=== PATIENT | female | born 1995 | race Caucasian/White ===

== ENCOUNTER → 2019-12-17 16:22 | Emergency (ER) | payer BC ==
[~2019-12-17 16:22] MED LIST: Sulfamethox/Trimethoprim DS 800/160* TAB PO ONE
[2019-12-17 16:31] VITALS: BP 139/92
--- NOTE | 2019-12-17 16:50 | ED ---
Lower Extremity - HPI Summary HPI Summary: Patient complains of purulent discharge from fourth and fifth digits of right foot. Patient states she stubbed his toe toes 1-1/2 weeks ago, has been willard taping them. Noticed erythema and purulence this morning. Denies new trauma. Denies fever, cough, sore throat, CP, SOB, N/3/D, abdominal pain, change in urine, change in BM. Medical history is none. - History of Current Complaint Chief Complaint: EDExtremityLower Stated Complaint: R FOOT PAIN PER PT Time Seen by Provider: 12/17/19 16:36 Hx Obtained From: Patient Mechanism Of Injury: Blunt Trauma Onset/Duration: Weeks Severity Initially: Moderate Severity Currently: Moderate Pain Intensity: 8 Pain Scale Used: 0-10 Numeric Timing: Constant Location: Is Discrete @ Character Of Pain: Aching, Throbbing Associated Signs And Symptoms: Positive: Swelling, Redness Aggravating Factor(s): Standing, Ambulation, Weight Bearing Alleviating Factor(s): Rest, Elevation Able to Bear Weight: Yes - Allergies/Home Medications Allergies/Adverse Reactions: Allergies Allergy/AdvReac Type Severity Reaction Status Date / Time Penicillins Allergy Rash Verified 12/17/19 16:31 PMH/Surg Hx/FS Hx/Imm Hx Endocrine/Hematology History: Denies: Hx Anticoagulant Therapy Cardiovascular History: Denies: Hx Pacemaker/ICD History: Denies: Hx Dialysis Sensory History: Denies: Hx Eye Prosthesis, Hx Deafness Opthamlomology History: Denies: Hx Eye Prosthesis EENT History: Denies: Hx Deafness Neurological History: Reports: Other Neuro Impairments/Disorders - MID BACK PAIN , Denies: Hx Dementia Psychiatric History: Denies: Hx Autism Infectious Disease History: No Infectious Disease History: Denies: Traveled Outside the [place] in Last 30 Days - Family History Known Family History: Positive: Non-Contributory - Social History Alcohol Use: None Substance Use Type: Reports: None Smoking Status (MU): Never Smoked Tobacco Review of Systems Constitutional: Negative Eyes: Negative ENT: Negative Cardiovascular: Negative Respiratory: Negative Gastrointestinal: Negative Genitourinary: Negative Musculoskeletal: Other Skin: Other Neurological/Mental Status: Negative Psychological: Normal All Other Systems Reviewed And Are Negative: Yes Physical Exam - Summary Physical Exam Summary: Erythema to the proximal to fourth and fifth digits of right foot. Open wound at base of webbing between the fourth and fifth digits of right foot. Positive purulent drainage. No evidence of abscess. PMS intact distally. Triage Information Reviewed: Yes Vital Signs On Initial Exam: Initial Vitals Temp Pulse Resp BP Pulse Ox 98.3 F 83 16 139/92 99 12/17/19 16:26 12/17/19 16:26 12/17/19 16:26 12/17/19 16:26 12/17/19 16:26 Vital Signs Reviewed: Yes Appearance: Positive: Well-Appearing Skin: Positive: Warm Head/Face: Positive: Normal Head/Face Inspection Eyes: Positive: Normal Neck: Positive: Supple Respiratory/Lung Sounds: Positive: Clear to Auscultation Cardiovascular: Positive: Normal Abdomen Description: Positive: Nontender Musculoskeletal: Positive: Normal Neurological: Positive: Normal Psychiatric: Positive: Normal AVPU Assessment: Alert - Paul Coma Scale Best Eye Response: 4 - Spontaneous Best Motor Response: 6 - Obeys Commands Best Verbal Response: 5 - Oriented Coma Scale Total: 15 Procedures - Sedation Patient Received Moderate/Deep Sedation with Procedure: No Diagnostics - Vital Signs Vital Signs Temp Pulse Resp BP Pulse Ox 12/17/19 16:26 98.3 F 83 16 139/92 99 - Laboratory Lab Statement: Any lab studies that have been ordered have been reviewed, and results considered in the medical decision making process. Lower Extremity Course/Dx - Course Course Of Treatment: Patient complains of purulent discharge from fourth and fifth digits of right foot. Patient states she stubbed his toe toes 1-1/2 weeks ago, has been willard taping them. Noticed erythema and purulence this morning. Denies new trauma. Denies fever, cough, sore throat, CP, SOB, N/3/D, abdominal pain, change in urine, change in BM. Medical history is none. Vital signs within normal limits. X-ray was negative. wound Cleaned and dressed. No Rx for Bactrim. - Diagnoses Provider Diagnoses: Cellulitis Discharge ED - Sign-Out/Discharge Documenting (check all that apply): Patient Departure - Discharge Plan Condition: Stable Disposition: HOME Prescriptions: Sulfamethox/Trimethoprim DS* [Bactrim DS 800/160 TAB*] 1 tab PO BID 10 Days #20 tab Patient Education Materials: Cellulitis (ED) Forms: *Work Release Referrals: Renetta Esteban PA [Primary Care Provider] - Additional Instructions: Keep wound in the webbing between fourth and fifth digits clean and dry. Take antibiotics as directed. Alternate ibuprofen 600 mg with Tylenol 650 mg every 3 hours or pain. Follow-up with primary care. Return to the ED for any new or worsening symptoms. - Billing Disposition and Condition Condition: STABLE Disposition: Home
--- NOTE | 2019-12-19 05:54 | ED ---
Imaging and Labs Follow Up Follow Up Type: Labs/Cultures Labs/Culture Result: Patient wound culture preliminary grew pseudomonas aeruginosa Patient Communication/Plan: This patient was placed on Bactrim prior to discharge Patient Communication/Plan: This is not sensitive to the organism Provider Diagnoses: Cellulitis
--- NOTE | 2019-12-20 12:39 | ED ---
Imaging and Labs Follow Up Follow Up Type: Labs/Cultures Labs/Culture Result: Wound culture returned showing pseudomonas aeruginosa. Patient Communication/Plan: Patient called and unable to leave voicemail. Culture result was sent to the patient's PCP. Provider Diagnoses: Cellulitis
== END | disposition home or self-care (01) ==
LOC: ED 16:22
DX: L03.031 Cellulitis of right toe (principal); B96.5 Pseudomonas (aeruginosa) (mallei) (pseudomallei) as the cause of diseases classified elsewhere; Z88.0 Allergy status to penicillin
CPT/HCPCS: 87070; 87077; 87186; 87205; 87640; 87641; 99282

== ENCOUNTER 2024-08-31 17:48 | Inpatient (IN) ==
[2024-08-31] MEDS ORDERED: Buffered Lidocaine 1% SYRIN 1 ml INTRADERM ONE (20:23)
[2024-08-31] MEDS ORDERED: Lidocaine 1% VIAL 10 MG/ML 30 ML VIAL INJ PRN (20:23)
[2024-08-31] MEDS ORDERED: Calcium Carb (TUMS) 500 mg CHEW TAB PO PRN (20:35)
[2024-08-31] MEDS: miSOPROStol 100 mcg TAB ONE (20:52)
[2024-08-31 21:27] LABS: ABS Eosinophils 0.1 10^3/uL (0.0-0.5); ABS Lymphocytes 1.8 10^3/uL (1.0-4.8); ABS Monocytes 0.5 10^3/uL (0.0-0.9); ABS Neutrophils 5.4 10^3/uL (1.5-7.6); Eosinophil % 0.8 %; Hematocrit 34.9 % (35-45); Hemoglobin 11.7 g/dL (11.5-14.3); Lymphocyte % 23.4 %; Mean Corpuscular Hemoglobin 28.8 pg (27-33); Mean Corpuscular Hgb Conc 33.5 g/dL (31-36); Mean Corpuscular Volume 85.9 fL (80-97); Mean Platelet Volume 9.8 fL (7.5-11.2); Nucleated Red Blood Cells % 0.1 %/100WBC (0.0-0.8); Platelet Count 208 10^3/uL (150-450); Red Blood Count 4.06 10^6/uL (3.63-4.92); Red Cell Distribution Width 13.6 % (12-17); White Blood Count 7.8 10^3/uL (3.8-11.8)
[2024-08-31 21:53] LABS: Urine Benzodiazepine Screen None Detected (None Detect); Urine Cannabinoids Screen None Detected (None Detect); Urine Opiates Screen None Detected (None Detect)
[2024-09-01] MEDS: miSOPROStol 100 mcg TAB ONE (01:54)
[2024-09-01] MEDS: Ondansetron 4 mg VIAL 2 MG/ML 2 ml VIAL IV PRN (02:32)
[2024-09-01] MEDS: Prochlorperazine 5 mg/ml 2 ml VIAL (10 mg) IV PRN (03:18)
[2024-09-01] MEDS: Nalbuphine 10 MG/ML 1 ML VIAL IV PRN (03:19)
[2024-09-01] MEDS: Lactated Ringers 1000 ml BAG 1,000 ML IV SCH (03:40)
[2024-09-01] MEDS: Ampicillin ADVAN 2 GM in NS 0.9% 100 ml BAG 100 ML IVPB ONE (03:40)
[2024-09-01] MEDS ORDERED: miSOPROStol 100 mcg TAB ONE ×2 (06:00→18:00)
[2024-09-01] MEDS: Ampicillin IV 1 GM in NS 0.9% 50 ML 50 ML IVPB SCH (08:48)
[2024-09-01] MEDS: Oxytocin in LR 20,000 MILLI.UNIT/1,000 ML BAG IV SCH (09:27)
[2024-09-01] MEDS ORDERED: Phenylephrine 40 mcg/mL 10mL (400mcg) SYRINGE ONE (11:08)
[2024-09-01] MEDS ORDERED: OBEPIDURAL (200 ML) 200 ML EPIDURAL ONE (11:08)
[2024-09-01] MEDS ORDERED: Lidocaine 1.5% EPI 1:200,000 30 ML SDV ONE (11:08)
[2024-09-01] MEDS ORDERED: Phenylephrine 40 mcg/mL 10mL (400mcg) SYRINGE IV PUSH PRN ×2 (12:17)
[2024-09-01] MEDS ORDERED: Sodium Citrate/Citric Acid LIQ 15 ML UDC PO PRN (12:17)
[2024-09-01 12:44] LABS: Urine Appearance Turbid; Urine Bilirubin Negative (Negative); Urine Blood Negative (Negative); Urine Color Light-Yellow; Urine Glucose Negative (Negative); Urine Ketones Negative (Negative); Urine Nitrite Negative (Negative); Urine Protein Negative (Negative); Urine Specific Gravity 1.016 (1.002-1.030); Urine Urobilinogen Negative (Negative)
[2024-09-01] MEDS: OBEPIDURAL (200 ML) 200 ML EPIDURAL SCH (13:50)
[2024-09-01] MEDS ORDERED: Glycerin ADULT 2.4 gm SUPP PR PRN (17:40)
[2024-09-01] MEDS ORDERED: Lactated Ringers 1000 ml BAG 1,000 ML IV SCH (18:00)
[2024-09-01] MEDS: Dibucaine 1% OINT 28.35 GM TUBE PR PRN (20:30)
[2024-09-01] MEDS: Witch Hazel PAD JAR TOPICAL PRN (20:30)
[2024-09-02] MEDS: Lactated Ringers 1000 ml BAG 1,000 ML IV SCH (04:27)
[2024-09-02] MEDS: Lactated Ringers 1000 ml BAG 1,000 ML IV ONE ×2 (04:27→15:41)
[2024-09-02] MEDS: Oxytocin in LR 20,000 MILLI.UNIT/1,000 ML BAG IV SCH (04:27)
[2024-09-02 08:29] LABS: ABS Eosinophils 0.1 10^3/uL (0.0-0.5); ABS Lymphocytes 1.4 10^3/uL (1.0-4.8); ABS Monocytes 0.5 10^3/uL (0.0-0.9); ABS Neutrophils 8.3 10^3/uL (1.5-7.6); Eosinophil % 0.8 %; Hematocrit 31.7 % (35-45); Hemoglobin 10.9 g/dL (11.5-14.3); Lymphocyte % 13.7 %; Mean Corpuscular Hemoglobin 29.9 pg (27-33); Mean Corpuscular Hgb Conc 34.6 g/dL (31-36); Mean Corpuscular Volume 86.5 fL (80-97); Mean Platelet Volume 10.2 fL (7.5-11.2); Platelet Count 178 10^3/uL (150-450); Red Blood Count 3.66 10^6/uL (3.63-4.92); Red Cell Distribution Width 13.8 % (12-17); White Blood Count 10.3 10^3/uL (3.8-11.8)
[2024-09-02] MEDS: Influenza Vaccine *TRI* 2024-25* 0.5 ML SYRINGE IM ONE (15:42)
[2024-09-03 09:01] VITALS: BP 118/64
[2024-09-03] MEDS: Influenza Vaccine *TRI* 2024-25* 0.5 ML SYRINGE IM ONE (14:41)
[2024-09-03] MEDS: Measles, Mumps,Rubella VACC 0.5 ML/VIAL SUBCUT ONE (14:43)
[2024-09-03] MEDS: Varicella Virus Vaccine Live 0.5 ML VIAL SUBCUT ONE (14:45)
== END 2024-09-03 14:50 | disposition home or self-care (01) | DRG 560 ==
LOC: MCHOBOUT 17:48 → MCHOB 20:28
PROVIDERS: ATTEND Advanced Practice Midwife